=== PATIENT | female | born 1970 | race Caucasian/White ===

== ENCOUNTER 2024-12-06 15:10 | Outpatient (CLI) | payer MEDICAID, SELFPAY ==
--- NOTE | 2024-12-06 15:14 | US_ITS ---
WS: [id number] RENAL ULTRASOUND URINARY BLADDER ULTRASOUND HISTORY: FLANK PAIN COMPARISON: None available. TECHNIQUE: 2-D and color Doppler imaging of the kidney submitted. Right kidney: 8.5 cm x 3.7 cm x 4.0 cm. Normal echogenicity with no hydronephrosis or mass. Left kidney: 8.1 cm x 4.7 cm x 5.3 cm. Normal echogenicity with no hydronephrosis or mass. Aorta: Normal. Urinary Bladder: Minimally distended. Prevoid volume 9 mL. Post void volume 0.4 mL US/US renal BI with PV bladder IMPRESSION: 1. Low normal size kidneys. No obstruction. 2. Urinary bladder is minimally distended on the prevoid image. Patient states she does feel full. No significant post void residual.
== END 2024-12-06 15:11 | disposition home or self-care (01) ==
LOC: RAD 15:13
DX: R10.9 Unspecified abdominal pain (principal)
CPT/HCPCS: 76770; 76857

== ENCOUNTER → 2025-01-20 11:37 | Outpatient (BNVA) | payer MEDICAID, SELFPAY | PROVIDERS: Visit Provider Family Medicine | DX: E55.9 Vitamin D deficiency, unspecified (principal); R25.9 Unspecified abnormal involuntary movements; Z01.818 Encounter for other preprocedural examination | CPT/HCPCS: 80053; 81003; 82306; 82607; 83735; 84439; 84443; 85025 ==

== ENCOUNTER 2025-01-25 23:33 | Emergency (ER) | payer MEDICAID, SELFPAY ==
[2025-01-25 23:40] VITALS: BP 140/72; PULSE 130; RESP 20; TEMP 36.6; O2SAT 100; BMI 20.4
[2025-01-26 00:12] LABS: Bilirubin Urine Negative (Negative); Blood Urine 3+ (Negative); Glucose Urine UA Negative (Normal); Ketones Urine Trace (Negative); Leukocyte Esterase Urine Negative (Negative); Nitrate Urine Negative (Negative); Protein Urine 1+ (Negative); Specific Gravity, Urine 1.024 (1.005-1.030); Urine Appearance Turbid (CLEAR); Urine Color Yellow (Yellow)
[2025-01-26 00:17] LABS: Add Urine Microscopic? YES; Universal Test for UA Present (0)
[2025-01-26 00:34] LABS: Bacteria Urine TRACE /hpf; Calcium Oxalate Crystals Urine >100 /hpf; UA Manual Slide Review YES
[2025-01-26 00:35] LABS: Add Urine Culture? No
[2025-01-26] MEDS: phenazopyridine 100 mg Tablet PO (00:37)
[2025-01-26] MEDS: ibuprofen 600 mg Tablet PO (01:03)
--- NOTE | 2025-01-26 01:25 | PC.NURSE ---
Pt refused CT, IV, IM injections of pain meds or to keep bp cuff or pulse ox on. Pt did not want her call light because of germs. Pt educated by that in order to measure the size of her kidney stone we needed a CT, pt refused due to radiation.
--- NOTE | 2025-01-26 05:10 | W.ED.FEMALGU ---
HPI - Female Genitourinary General: Chief complaint: Urogenital-Female Stated complaint: ABD Pain\Burning when Pee Time Seen by Provider: 01/26/25 00:09 History of Present Illness: Patient is a 54-year-old female seen for sudden onset suprapubic pain and dysuria. She also endorses nausea. Pain is currently 9 of 10. She has never had this kind pain before. She thinks she might have a UTI. She denies fever, cough, diarrhea, constipation, and has not vomited despite the nausea. Symptoms have been ongoing for the last several hours. Related Data Previous Rx's ?Medication ?Instructions ?Recorded ketorolac 10 mg tablet 10 mg PO Q8H PRN pain 10 days #30 01/26/25 tabs ondansetron 4 mg disintegrating 4 mg PO Q8H PRN nausea and 01/26/25 tablet vomiting 48 hours #14 tabs Allergies Allergy/AdvReac Type Severity Reaction Status Date / Time Sulfa (Sulfonamide Allergy Intermediate hives Verified 01/20/25 11:08 Antibiotics) PFSH ED PFSH: Surgical History (Updated 01/20/25 @ 11:18 by Sunita Kennedy MD) History of section Family History (Updated 01/20/25 @ 11:19 by Sunita Kennedy MD) Sister No problems noted. Mother Ovarian cancer Grandmother Breast cancer, Onset Age: 93 Social History (Updated 01/20/25 @ 10:46 by Nicci Serna) Smoking and tobacco/nicotine status: never used tobacco/nicotine Second hand smoke exposure: No Alcohol intake: never Substance/Drug Use: never Adopted: No Lives independently: Yes Household members: spouse Marital status: Number of children: 1 service: No Current occupational status: unemployed Pets and animals: No Do you think of yourself as: Straight/Heterosexual Current gender identity: Female Special bonnie needs: No Agree to transfusion: Yes Physical Exam Const: COMMON NORMALS: patient oriented x3 and alert OTHER: Mild distress due to pain. HENMT: COMMON NORMALS: normocephalic and atraumatic HEAD & SCALP: normocephalic and atraumatic Eye: COMMON NORMALS: Equal, round and reactive pupils present, EOMs intact bilaterally and no scleral icterus PUPIL: Yes Equal, round and reactive pupils present Resp: COMMON NORMALS: normal respiratory effort and No retractions Cardio: COMMON NORMALS: regular rate, regular rhythm and No murmurs present (Cardio) RATE: regular rate RHYTHM: regular rhythm GI: COMMON NORMALS: Normal to inspection, nondistended, normoactive bowel sounds present (Pain is not reducible with palpation of the abdomen or flank.), Soft to palpation and non-tender PALPATION: Yes Soft to palpation Neuro: COMMON NORMALS: patient oriented x3 SENSORIUM/ORIENTATION: Yes alert Skin: COMMON NORMALS: no rashes or lesions noted GENERAL SKIN EXAM: no rashes or lesions noted Course Vital Signs: Vital signs: Vital Signs Temperature 97.9 F 01/25/25 23:40 Pulse Rate 130 H 01/25/25 23:40 Respiratory Rate 20 H 01/25/25 23:40 Blood Pressure 140/72 01/25/25 23:40 Pulse Oximetry 100 01/25/25 23:40 Oxygen Delivery Me thod Room Air 01/25/25 23:40 MDM - Female Medical Decision Making Patient remained hemodynamically stable through ED course. Given her sudden onset intractable pain and nausea I am highly concerned she might have a ureteral stone. I shared my concern multiple times but she graciously refuses CT scan or blood work. She does not want a needle to poke her skin. She will take oral medication. Urinalysis shows no evidence of infection but there is 3+ blood and calcium oxalate in the urine raising concern and further for ureteral stone. We discussed that the stones often pass spontaneously but there is no way to know for sure without knowing how large the stone is with a CT scan. She states that she will return the emergency department if significantly worse. I will refer her to urology as well and give her a prescription for Toradol and Zofran. Lab Data Laboratory Results Urine Color Yellow (Yellow) 01/26/25 00:00 Urine Appearance Turbid (CLEAR) A 01/26/25 00:00 Urine pH 5.0 (5-7) 01/26/25 00:00 Ur Specific [place] 1.024 (1.005-1.030) 01/26/25 00:00 Urine Protein 1+ (Negative) A 01/26/25 00:00 Urine Glucose (UA) Negative (Normal) 01/26/25 00:00 Urine Ketones Trace (Negative) 01/26/25 00:00 Urine Blood 3+ (Negative) A 01/26/25 00:00 Urine Nitrate Negative (Negative) 01/26/25 00:00 Urine Bilirubin Negative (Negative) 01/26/25 00:00 Urine Urobilinogen 1.0 mg/dL (Negative) 01/26/25 00:00 Ur Leukocyte Esterase Negative (Negative) 01/26/25 00:00 Urine RBC 6-10 /hpf (0-2) 01/26/25 00:00 Urine WBC None /hpf (0-5) 01/26/25 00:00 Ur Squamous Epith Cells None /hpf (0-5) 01/26/25 00:00 Calcium Oxalate Crystal >100 /hpf H 01/26/25 00:00 Uric Acid Crystals 10-15 /hpf H 01/26/25 00:00 Amorphous Sediment Not Reportable 01/26/25 00:00 Urine Bacteria Trace /hpf (NONE) 01/26/25 00:00 No radiology studies performed this visit Discharge Plan Discharge Patient Disposition: Home Clinical Impression: Ureteral stone Condition: Stable Prescriptions: New ketorolac 10 mg tablet 10 mg PO Q8H PRN (Reason: pain) 10 Days Qty: 30 0RF ondansetron 4 mg tablet,disintegrating 4 mg PO Q8H PRN (Reason: nausea and vomiting) 2 Days Qty: 14 0RF Discharge Orders: Discharge ED (Routine); Ordered 01/26/25 Ordered By: Ramiro Richter Referrals: [facility] [Outside] Discharge Diet: Advance as tolerated Discharge Activity: Increase activity as tolerated Patient Instructions: Ureteral Stones (ED) Activity Restrictions/Additional Instructions: Without undergoing CT scan we cannot know for sure that you have a kidney stone stuck in the ureter and we do not know what size it is, however your urine test shows calcium oxalate and blood and your symptoms are consistent with kidney stone stuck in the ureter. Hopefully will pass spontaneously without need for surgical intervention. If the pain persists for more than 3 to 4 days I would call the urology clinic listed on this paperwork to be seen a soon as feasible to see if they need to perform a surgical intervention to help pass the stone. Print Language: Ecuadorean Coding Level of Care Code ED Gate Cutter for Jennifer Bermudez
== END 2025-01-26 01:10 | disposition home or self-care (01) ==
PROVIDERS: Emergency Provider Student in an Organized Health Care Education/Training Program
DX: N20.1 Calculus of ureter (principal)
CPT/HCPCS: 81001; 99283; J9999

== ENCOUNTER 2025-01-28 16:31 | Emergency (ER) | payer MEDICAID, SELFPAY ==
[2025-01-28 16:55] VITALS: BP 134/79; PULSE 96; RESP 14; TEMP 36.7; O2SAT 98
--- NOTE | 2025-01-28 17:39 | CTR_ITS ---
PROCEDURE INFORMATION: Exam: CT Abdomen And Pelvis Without Contrast Exam date and time: 01/28/2025 6:06 PM Age: 54 years old Clinical indication: Abdominal pain; Prior surgery; Surgery date: 6+ months; Surgery type: Csection; C/O left flank and pelvic pain. History of stones. ; Additional info: Flank pain with history of kidney stone TECHNIQUE: Imaging protocol: Computed tomography of the abdomen and pelvis without contrast. Radiation optimization: All CT scans at this facility use at least one of these dose optimization techniques: automated exposure control; mA and/or kV adjustment per patient size (includes targeted exams where dose is matched to clinical indication); or iterative reconstruction. COMPARISON: US renal BI with PV bladder 12/06/2024 3:20 PM RADIATION DOSE METRICS: Total DLP (mGy-cm): 313.18 FINDINGS: Liver: Unremarkable.No mass. Gallbladder and biliary ducts: Normal. No calcified stones. No ductal dilation. Pancreas: The pancreas is normal. Spleen: The spleen is normal. Adrenal glands: The adrenal glands are normal. Kidneys and ureters: The right kidney is normal. There is moderate to severe left hydronephrosis and hydroureter with 3 mm stone left ureterovesical junction. No additional calculi in the ureters or bladder. No left nephrolithiasis. Stomach and bowel: There is no evidence of intestinal perforation or obstruction. There is excessive colonic stool content. There is no evidence of colitis/diverticulitis. Appendix: No evidence of appendicitis. Intraperitoneal space: There is a trace amount of free fluid in the pelvis. No abscess or free intraperitoneal air. Vasculature: The aorta is normal. Lymph nodes: Unremarkable.No enlarged lymph nodes. Urinary bladder: There is nonspecific bladder wall thickening. This may be related to incomplete distention. Reproductive: Unremarkable as visualized. Bones/joints: Unremarkable. No acute fracture. Soft tissues: There is a fat-containing umbilical hernia. CT/CT kidney stone [id number] IMPRESSION: There is moderate to severe left hydronephrosis and hydroureter with 3 mm stone left ureterovesical junction.
[2025-01-28 18:04] LABS: Bilirubin Urine Negative (Negative); Glucose Urine UA Negative (Normal); Ketones Urine 1+ (Negative); Leukocyte Esterase Urine Negative (Negative); Nitrate Urine Negative (Negative); Protein Urine 1+ (Negative); Specific Gravity, Urine 1.005 (1.005-1.030); Urine Appearance Clear (CLEAR); Urine Color Yellow (Yellow); Urobilinogen Urine 0.2 mg/dL (Negative)
[2025-01-28 18:09] LABS: Add Urine Microscopic? YES; Bacteria Urine None Seen /hpf; Hyaline Casts Urine 1.65 /lpf; RBC Urine 0-2 /hpf (0-2); Squamous Epithelial Cell Urine 0-5 /hpf (0-5); WBC Urine 0-5 /hpf (0-5)
--- NOTE | 2025-01-28 18:51 | W.ED.FEMALGU ---
HPI - Female Genitourinary General: Chief complaint: Urogenital-Female Stated complaint: pain in vaginal/back area Time Seen by Provider: 01/28/25 17:41 History of Present Illness: Alba Doherty presents to the emergency department with severe burning pain in her perineal region and urethra, which started around 5:30 PM today. She reports the pain has been present for the last 3 days but has significantly worsened, describing it as horrible, horrible pain and likening it to feeling like almost got a knife or something. The patient states the pain is primarily located in her perineal region and urethra, with additional discomfort in her left abdomen and flank. She mentions intermittent pain in her uvula as well. The pain is severe, interfering with her sleep. She has attempted to alleviate the pain with ibuprofen and medication from the pharmacy, but reports minimal relief. Alba mentions a history of urinary system issues. She recalls experiencing irritation after urination 6-7 months ago, along with frequent urges to urinate and difficulty holding her urine. At that time, she also experienced flame, irritated sensations and pings, pangs under my legs. The patient reports a recent diagnosis of pre-diabetes about 6 months ago, which led her to modify her diet to include more plant-based foods. She specifically mentions consuming almonds, unaware they might be problematic. Alba expresses concern about her calcium oxalate levels, stating that recent tests showed elevated levels in her urine and intestine. Alba notes that she had an ultrasound of her kidneys, which reportedly showed they were smaller but otherwise okay. She mentions having stopped consuming dairy due to concerns about her vitamin D levels, which she states were elevated due to prolonged supplementation. The patient reports recent healthcare interactions, including visits to her primary care physician and attempts to schedule an appointment with a urologist. She states that the urologist required a CT scan before they would see her, which is partly why she has returned to the emergency department. Related Data Previous Rx's ?Medication ?Instructions ?Recorded ketorolac 10 mg tablet 10 mg PO Q8H PRN pain 10 days #30 01/26/25 tabs tamsulosin 0.4 mg capsule (Flomax) 0.4 mg PO DAILY #14 caps 01/28/25 Allergies Allergy/AdvReac Type Severity Reaction Status Date / Time Sulfa (Sulfonamide Allergy Intermediate hives Verified 01/28/25 17:01 Antibiotics) [facility] ED PFSH: Surgical History (Updated 01/20/25 @ 11:18 by Sunita Kennedy MD) History of section Family History (Updated 01/20/25 @ 11:19 by Sunita Kennedy MD) Sister No problems noted. Mother Ovarian cancer Grandmother Breast cancer, Onset Age: 93 Social History (Updated 01/20/25 @ 10:46 by Nicci Serna) Smoking and tobacco/nicotine status: never used tobacco/nicotine Second hand smoke exposure: No Alcohol intake: never Substance/Drug Use: never Adopted: No Lives independently: Yes Household members: spouse Marital status: Number of children: 1 service: No Current occupational status: unemployed Pets and animals: No Do you think of yourself as: Straight/Heterosexual Current gender identity: Female Special bonnie needs: No Agree to transfusion: Yes Physical Exam Const: COMMON NORMALS: no acute distress, patient oriented x3, healthy appearing, alert and well nourished HENMT: COMMON NORMALS: normocephalic HEAD & SCALP: normocephalic Eye: COMMON NORMALS: EOMs intact bilaterally Neck/C-Spine: COMMON NORMALS: full ROM and supple Resp: COMMON NORMALS: normal respiratory effort, No retractions and clear to auscultation bilaterally AUSCULTATION: clear to auscultation bilaterally Cardio: COMMON NORMALS: regular rate, regular rhythm, No gallops present (Cardio) and No murmurs present (Cardio) RATE: regular rate RHYTHM: regular rhythm GI: COMMON NORMALS: no masses; negative for non-tender (diffuse) : OTHER: CVA TTP on the left Extremity: GENERAL: Yes normal exam except as noted Neuro: COMMON NORMALS: patient oriented x3 SENSORIUM/ORIENTATION: Yes alert Skin: COMMON NORMALS: no rashes or lesions noted GENERAL SKIN EXAM: no rashes or lesions noted Course Vital Signs: Vital signs: Vital Signs Temperature 98.0 F 01/28/25 16:55 Pulse Rate 96 01/28/25 16:55 Respiratory Rate 14 01/28/25 16:55 Blood Pressure 134/79 01/28/25 16:55 Pulse Oximetry 98 01/28/25 16:55 Oxygen Delivery Me thod Room Air 01/28/25 16:55 MDM - Female Medical Decision Making 84-year-old female presents to the emergency department for evaluation of left flank pain, abdominal pain, and dysuria. On CT she was found to have left pyelonephritis with hydroureter. No signs of infection at this time. The stone is a small 3 mm. On review of the chart the patient had labs within the last week showing a normal kidney function and no elevated white count. Discussed with the patient starting Flomax and that the stone will likely pass on its own. She is establishing with urology. Return precautions were discussed. The the patient will manage pain with the previously prescribed ketorolac. Patient was discharged home in good condition. Differential Diagnosis Likely abdominal pain, acute appendicitis, calculus of kidney, constipation, diverticulitis, pancreatitis and small bowel obstruction Lab Data Radiology Impressions Abdomen/Pelvis CT 01/28/25 17:39 IMPRESSION: There is moderate to severe left hydronephrosis and hydroureter with 3 mm stone left ureterovesical junction. Laboratory Results Urine Color Yellow (Yellow) 01/28/25 17:41 Urine Appearance Clear (CLEAR) 01/28/25 17:41 Urine pH 5.0 (5-7) 01/28/25 17:41 Ur Specific [place] 1.005 (1.005-1.030) 01/28/25 17:41 Urine Protein 1+ (Negative) A 01/28/25 17:41 Urine Glucose (UA) Negative (Normal) 01/28/25 17:41 Urine Ketones 1+ (Negative) H 01/28/25 17:41 Urine Blood 1+ (Negative) A 01/28/25 17:41 Urine Nitrate Negative (Negative) 01/28/25 17:41 Urine Bilirubin Negative (Negative) 01/28/25 17:41 Urine Urobilinogen 0.2 mg/dL (Negative) 01/28/25 17:41 Ur Leukocyte Esterase Negative (Negative) 01/28/25 17:41 Urine RBC 0-2 /hpf (0-2) 01/28/25 17:41 Urine WBC 0-5 /hpf (0-5) 01/28/25 17:41 Ur Squamous Epith Cells 0-5 /hpf (0-5) 01/28/25 17:41 Amorphous Sediment Not Reportable 01/28/25 17:41 Urine Bacteria None seen /hpf (NONE) 01/28/25 17:41 Hyaline Casts 1.65 /lpf 01/28/25 17:41 All radiology interpretation(s) finalized by discharge Discharge Plan Discharge Patient Disposition: Home Clinical Impression: Ureteral stone, Pelvic pain Condition: Stable Prescriptions: New tamsulosin [Flomax] 0.4 mg capsule 0.4 mg PO DAILY Qty: 14 0RF No Action ketorolac 10 mg tablet 10 mg PO Q8H PRN (Reason: pain) 10 Days Qty: 30 0RF Discharge Orders: Discharge ED (Routine); Ordered 01/28/25 Ordered By: Johan Law Discharge Diet: Advance as tolerated Discharge Activity: Increase activity as tolerated Patient Instructions: Kidney Stones (ED), Opioid Safety, Pain Management Activity Restrictions/Additional Instructions: Please return to the emergency department any new or worsening symptoms. Please follow-up with your primary care doctor and urologist for continued management of your kidney stones. Print Language: Cypriot Coding Level of Care Code ED Pail Tester for Jennifer Bermudez
[2025-01-28 19:05] LABS: Blood Urine 1+ (Negative); UA Slide Review UA Slide Review Perf
== END 2025-01-28 19:55 | disposition home or self-care (01) ==
PROVIDERS: Emergency Provider General Practice
DX: N20.1 Calculus of ureter (principal); R10.2 Pelvic and perineal pain
CPT/HCPCS: 74176; 81001; 99284

== ENCOUNTER → 2025-02-17 14:47 | Outpatient (BNVA) | payer MEDICAID, SELFPAY | PROVIDERS: PCP Family Medicine; Visit Provider Family Medicine | DX: E67.3 Hypervitaminosis D (principal); N20.0 Calculus of kidney; R73.03 Prediabetes; Z13.6 Encounter for screening for cardiovascular disorders; R25.9 Unspecified abnormal involuntary movements | CPT/HCPCS: 80061; 81003; 82306; 83036; 84207; 84425; 84591 ==

== ENCOUNTER 2025-04-29 10:14 | Outpatient (CLI) | payer MEDICAID, SELFPAY ==
--- NOTE | 2025-04-29 10:15 | MR_ITS ---
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 Technique: Multiplanar, multisequence noncontrast imaging of the cervical spine. Slight reversal of the normal cervical lordosis centered at C3-4. Mild effacement of ventral CSF at C3-4 and C4-5. No signal abnormality in the cord. Very mild narrowing of the disc spaces. Signal within the cervical cord is normal. Visualized posterior fossa is unremarkable. Craniocervical junction, C1 and C2 relationship, odontoid process and soft tissues are normal. C2-C3: Normal. C3-C4: Mild disc bulging with a central disc protrusion. Effacement of ventral CSF. Mild central stenosis. C4-C5: Mild annular disc bulging with mild osteophytic ridging. Effacement of ventral CSF. Small foraminal osteophytes. Mild central and foraminal stenosis. C5-C6: Mild annular disc bulging and osteophytic ridging. Small disc osteophyte complex RIGHT foramen. Mild central and bilateral foraminal stenosis. C6-C7: Normal. C7-T1: Normal. Paraspinal soft tissue are normal. MR/MR cervical spin wo con* [id number] IMPRESSION: 1. Mild reversal of the normal cervical lordosis centered at C3-4. 2. Mild central stenosis from C3-4 through C5-6 due to reversal of the cervica l lordosis, osteophyte and disc disease. 3. Mild bilateral foraminal stenosis at C4-5 and C5-6 due to disc osteophyte d isease.
--- NOTE | 2025-04-29 11:00 | MR_ITS ---
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 TECHNIQUE: Diffusion imaging, multiplanar T1, T2 and FLAIR imaging obtained. No evidence for acute infarct or hemorrhage. Hawkins-white matter differentiation is normal. Normal hippocampal formations. No remote or acute infarcts are volume loss. Ventricles and extra-axial spaces are normal. No inferior displacement of cerebellar tonsils. The sella turcica and pituitary gland are unremarkable. Dural venous sinuses and [place] demonstrate no abnormality on this unenhanced studies. Paranasal sinuses: Minimal mucoperiosteal thickening in the paranasal sinuses. No air-fluid levels. Mastoid air cells: Normal. Calvarium and scalp: Intact. MR/MR head wo con* [id number] IMPRESSION: 1. Unremarkable noncontrast MRI brain. 2. Mild mucoperiosteal thickening in the paranasal sinuses. No air-fluid level s. 3. Normal hippocampal formations.
== END 2025-04-29 10:15 | disposition home or self-care (01) ==
LOC: RAD 10:15
PROVIDERS: PCP Family Medicine; Visit Provider Psychiatry & Neurology Neurology
DX: G25.3 Myoclonus (principal); J34.89 Other specified disorders of nose and nasal sinuses; R93.7 Abnormal findings on diagnostic imaging of other parts of musculoskeletal system; M48.02 Spinal stenosis, cervical region; M25.78 Osteophyte, vertebrae; M50.322 Other cervical disc degeneration at C5-C6 level
CPT/HCPCS: 70551; 72141